=== PATIENT | male | born 1960 | race Caucasian/White ===

== ENCOUNTER 2019-03-06 07:26 | Day surgery (SDC) | payer BC ==
[2019-03-04 16:22] VITALS: BMI 42.5
[2019-03-06] MEDS ORDERED: MIDAZOLAM HCL 2 MG/2 ML SINGLE DOSE VIAL ONE ×2 (09:17→10:39)
[2019-03-06] MEDS ORDERED: ROPIVACAINE HCL 0.5% 30ML VIAL ONE (09:17)
[2019-03-06] MEDS ORDERED: ONDANSETRON 4 MG/2 ML VIAL IVPUSH PRN (09:57)
[2019-03-06] MEDS ORDERED: oxyCODONE HCL 5 MG TABLET PO PRN ×2 (09:57)
[2019-03-06] MEDS ORDERED: LACTATED RINGERS SOLUTION 1,000 ML IV SCH (10:00)
[2019-03-06] MEDS ORDERED: ceFAZolin SODIUM 1 GM VIAL ONE (10:49)
[2019-03-06 12:28] VITALS: TEMP 98
[2019-03-06 13:13] VITALS: BP 129/60; PULSE 56
--- NOTE | 2019-03-06 13:33 | OP ---
DATE OF OPERATION: 03/06/2019 Done at [facility] SURGEON: Khoa Vergara MD BOWLING FLOOR DESK CLERK: CHRISTOPHER Tinoco PREOPERATIVE DIAGNOSES: 1. Right shoulder rotator cuff tear. 2. Right shoulder adhesive capsulitis. 3. Right shoulder impingement syndrome. 4. Right shoulder acromioclavicular joint disease. 5. Right shoulder superior labral tear, anterior and posterior with synovitis. 6. Right shoulder long head biceps tendon tear. POSTOPERATIVE DIAGNOSES: 1. Right shoulder rotator cuff tear. 2. Right shoulder adhesive capsulitis. 3. Right shoulder impingement syndrome. 4. Right shoulder acromioclavicular joint disease. 5. Right shoulder superior labral tear, anterior and posterior with synovitis. 6. Right shoulder long head biceps tendon tear. PROCEDURES: 1. Right shoulder arthroscopy with arthroscopic rotator cuff repair, CPT code 37731 2. Right shoulder arthroscopy with lysis and resection of adhesions, CPT code 85532. 3. Right shoulder arthroscopy with resection of clavicle acromioclavicular joint, CPT code 05180. 4. Right shoulder arthroscopy with subacromial decompression, CPT code 09084. 5. Right shoulder arthroscopy with debridement, CPT code 66008. 6. Right shoulder biceps tenolysis. FINDINGS: 1. Full-thickness supraspinatus rotator cuff tear 6 cm, full thickness. 2. Extensive tearing of the biceps tendon greater than 80%. 3. Superior labral tear anterior, posterior type 1/4. 4. Anterior labral fraying. 5. Posterior labral fraying. 6. Partial subscapularis tear superior fibers. 7. Glenohumeral synovitis with scar tissue. 8. Type 2 acromion with lateral spurring. 9. Inferior spurs to clavicle with acromioclavicular joint disease. 10. Thickened scars subacromial space most pronounced anteriorly and laterally. REPAIR TYPE: Biceps tendon was released due to extensive tearing and was not repairable. It was released with Bovie cautery and taken back to the labral rim. The supraspinatus was removed with loose debris, and 2 mattress sutures were placed into the supraspinatus and secured to a bleeding bone bed using a Maria Elena rotator cuff anchor. PROCEDURE: Informed consent was obtained. The patient was taken to the operating room, where the upper extremity was prepped and draped in a sterile fashion. The shoulder was manipulated for a full range of motion. A posterior incision portal was made and directed to the glenohumeral joint. Under direct visualization, an anterior incision and portal was made. Extensive synovitis, as well as chondral injuries throughout the glenohumeral joint were debrided and removed. Any identified labral injuries, including the superior labral tear, anterior and posterior, and anterior labrum torn portions, were removed as well. The rotator cuff was visualized and noted to have a full-thickness tear. The edges were debrided. The posterior incision portal was redirected to the subacromial space where a lateral incision portal was made. Excessive and thickened scar tissue noted throughout the subacromial space, including bursal and scar tissue, were removed. The type 2 acromion was converted into a flattened type 1 using a bur for subacromial decompression. The distal inferior spur at the distal clavicle was also debrided with the use of an accessory portal in the acromioclavicular joint. The edges of the rotator cuff were identified. Sutures were placed into the rotator cuff and secured using anchors through the greater tuberosity. Prior to securing, a bleeding bed was made using a small bur, creating a bleeding surface of the rotator cuff insertion. The shoulder was then drained, a single suture was placed in all portals, a sterile dressing was placed and the patient was transferred to the recovery room without complication. The PA listed above was present and assisted at surgery. Their presence was absolutely medically necessary for the completion of the procedure. They helped hold the arthroscopy, pass instruments (and implants when indicated) and the procedure could not have been completed without their assistance. KHOA VERGARA M.D. [id number]
--- NOTE | 2019-03-12 14:55 | PATH ---
Surgical Pathology Report Patient Name: BLANCA BAUM Med. Rec. #: [id number] /Age/Gender: 1960 (Age: 58) / M Account: [id number] Location: [facility] Taken: 03/06/2019 Received: 03/06/2019 Reported: 03/12/2019 Physicians: Khoa Mathur M.D. Specimen(s) Received RIGHT SHOULDER SHAVINGS Clinical History Impingement syndrome right shoulder Final Diagnosis SHOULDER, RIGHT, ARTHROSCOPIC SHAVINGS: FIBROCOLLAGENOUS TISSUE, BONE AND SKELETAL MUSCLE. Electronically Signed Hyacinth Rodriguez M.D. Gross Description Received in formalin, labeled "right shoulder shavings," is a 4.5 x 4.5 x 0.5 cm. aggregate of odonnell-yellow soft tissue fragments. A electronics parts sales representative portion is submitted in one cassette. 03/09/201903/09/2019
== END 2019-03-06 13:13 | disposition home or self-care (01) ==
LOC: FASU 07:26
PROVIDERS: ATTEND Orthopaedic Surgery
PROC: 0RNJ4ZZ Release Right Shoulder Joint, Percutaneous Endoscopic Approach (ICD-10-PCS; 2019-03-06)
PROC: 0PB94ZZ Excision of Right Clavicle, Percutaneous Endoscopic Approach (ICD-10-PCS; 2019-03-06)
PROC: 0RBJ4ZZ Excision of Right Shoulder Joint, Percutaneous Endoscopic Approach (ICD-10-PCS; 2019-03-06)
PROC: 0RNJ4ZZ Release Right Shoulder Joint, Percutaneous Endoscopic Approach (ICD-10-PCS; 2019-03-06)
PROC: 0LQ14ZZ Repair Right Shoulder Tendon, Percutaneous Endoscopic Approach (ICD-10-PCS; principal; 2019-03-06 10:57)
DX: M75.121 Complete rotator cuff tear or rupture of right shoulder, not specified as traumatic (principal); M75.41 Impingement syndrome of right shoulder; M75.01 Adhesive capsulitis of right shoulder; M24.111 Other articular cartilage disorders, right shoulder; M65.811 Other synovitis and tenosynovitis, right shoulder; M66.811 Spontaneous rupture of other tendons, right shoulder; M19.011 Primary osteoarthritis, right shoulder
CPT/HCPCS: 82962; 94760

== ENCOUNTER 2019-12-04 06:06 | Day surgery (SDC) | payer BC ==
--- OUTSIDE RECORDS SUMMARY | 2019-11-30 08:57 | XMS ---
:1960 Author Organization [facility] Support Name Relationship Address Phone CE[address] [phone] [place] [id number] [address] LOVE SIGNIFICANT OTHER [address] [facility] [place] [address] Re-disclosure Warning The records that you are about to access may contain information from federally- assisted alcohol or drug abuse programs. If such information is present, then the following federally mandated warning applies: This information has been disclosed to you from records protected by federal confidentiality rules (42 CFR part 2). The federal rules prohibit you from making any further disclosure of this information unless further disclosure is expressly permitted by the written consent of the person to whom it pertains or as otherwise permitted by 42 CFR part 2. A general authorization for the release of medical or other information is NOT sufficient for this purpose. The Federal rules restrict any use of the information to criminally investigate or prosecute any alcohol or drug abuse patient.The records that you are about to access may contain highly sensitive health information, the redisclosure of which is protected by Article 27-F of the [facility] Public Health law. If you continue you may haveaccess to information: Regarding HIV / AIDS; Provided by facilities licensed or operated by the [facility] Office of Mental Health; or Provided by the [facility] Office for People With Developmental Disabilities. If such information is present, then the following [facility] mandated warning applies: This information has been disclosed to you from confidential records which are protected by state law. State law prohibits you from making any further disclosure of this information without the specific written consent of the person to whom it pertains, or as otherwise permitted by law. Any unauthorized further disclosure in violation of state law may result in a fine or retirement sentence or both. A general authorization for the release of medical or other information is NOT sufficient authorization for further disclosure. Insurance Providers Payer name Policy type / Policy ID Covered Covered green party's Policy Plan Coverage type green party ID relationship to Antoine Information antoine BC OUT OF [id number] [id number]
[2019-11-30 15:55] VITALS: BMI 47.5
--- OUTSIDE RECORDS SUMMARY | 2019-12-04 06:10 | XMS ---
:1960 Author Organization [facility] Support Name Relationship Address Phone CE[address] [phone] [place] [id number] [address] LOVE SIGNIFICANT OTHER [address] [facility] [place] [address] Re-disclosure Warning The records that you are [...] is protected by Article 27-F of the [facility] Public Health law. If you continue you may haveaccess to information: Regarding HIV / AIDS; Provided by facilities licensed or operated by the [facility] Office of Mental Health; or Provided by the [facility] Office for People With Developmental Disabilities. If such information is present, then the following [facility] mandated warning applies: This information has been [...] law may result in a fine or chcf sentence or both. A general authorization for the release of medical or other information is NOT sufficient authorization for further disclosure. Insurance Providers Payer name Policy type / Policy ID Covered Covered alliance party's Policy Plan Coverage type alliance party ID relationship to Antoine Information antoine BC OUT OF [id number] SP [id number] [id number] Results ID Date Data Source [id number] 11/30/2019 02:04:00 PM EDT [facility] Name Value Range Interpretation Description Data Sup porting Code Source(s) Document(s ) SARS [facility] coronavirus 2 RNA This lab was ordered by [facility] and reported by [facility]. Procedure
[2019-12-04] MEDS ORDERED: ROPIVACAINE HCL 0.5% 30ML VIAL ONE (06:51)
[2019-12-04] MEDS ORDERED: MIDAZOLAM HCL 2 MG/2 ML SINGLE DOSE VIAL ONE ×4 (06:51→08:08)
[2019-12-04] MEDS ORDERED: PROPOFOL 20 ML ONE ×2 (06:58)
[2019-12-04] MEDS ORDERED: EPHEDRINE SULFATE/0.9% NACL/PF 50 MG/10 ML SYRINGE NR ONE (06:59)
[2019-12-04] MEDS ORDERED: SUCCINYLCHOLINE CHLORIDE 200 MG/10 ML SYRINGE ONE (06:59)
[2019-12-04] MEDS ORDERED: BUPIVACAINE HCL/PF 0.5% (5MG/ML) 10 ML VIAL ONE (07:37)
[2019-12-04] MEDS ORDERED: BUPIVACAINE HCL/PF 0.25% (2.5MG/ML) 10 ML VIAL ONE (07:37)
[2019-12-04] MEDS ORDERED: ceFAZolin SODIUM 1 GM VIAL ONE (07:38)
[2019-12-04] MEDS ORDERED: ACETAMINOPHEN INJECTION 100 ML IVPB ONE (07:41)
[2019-12-04] MEDS ORDERED: ceFAZolin SODIUM 1 GM VIAL IVPB ONE (07:50)
[2019-12-04] MEDS ORDERED: oxyCODONE HCL 5 MG TABLET PO PRN ×2 (08:33)
[2019-12-04] MEDS ORDERED: ONDANSETRON 4 MG/2 ML VIAL IVPUSH PRN (08:33)
[2019-12-04] MEDS ORDERED: BUPIVACAINE HCL/PF 0.25% (2.5MG/ML) 10 ML VIAL IJ ONE (08:40)
[2019-12-04] MEDS ORDERED: LACTATED RINGERS SOLUTION 1,000 ML IV SCH (08:45)
[2019-12-04 09:25] VITALS: TEMP 98.7
[2019-12-04 10:26] VITALS: BP 120/72; PULSE 58
--- NOTE | 2019-12-06 14:02 | SPEC ---
DATE OF OPERATION: 12/04/2019 LOCATION: [facility]. SURGEON: Lorenzo Vergara MD STOCK TRADER: CHRISTOPHER Tinoco PREOPERATIVE DIAGNOSES: 1. Right shoulder adhesive capsulitis. 2. Right shoulder impingement syndrome. 3. Right shoulder acromioclavicular joint disease. 4. Right shoulder superior labral tear, anterior/posterior synovitis. POSTOPERATIVE DIAGNOSES: 1. Right shoulder adhesive capsulitis. 2. Right shoulder impingement syndrome. 3. Right shoulder acromioclavicular joint disease. 4. Right shoulder superior labral tear, anterior/posterior synovitis. PROCEDURE: 1. Right shoulder arthroscopy with lysis of adhesions. CPT code 65474. 2. Right shoulder arthroscopy with subacromial decompression. CPT code 86787. 3. Right shoulder arthroscopy with resection of distal clavicle and acromioclavicular joint. CPT code 28850. 4. Right shoulder arthroscopy with debridement. CPT code 28887. FINDINGS: 1. Evidence of previous arthroscopy with rotator cuff repair and biceps tenodesis. 2. No evidence of recurrent tear. 3. Extensive scar tissue, subacromial space anterior and laterally. 4. Extensive adhesions, glenohumeral joint anteriorly. 5. Minor fraying, medial and posterior labrum. 6. Previous subacromial decompression with recurrent anterior spur. 7. Inferior spur of distal clavicle with previous partial resection. DESCRIPTION OF PROCEDURE: Informed consent was obtained. The patient was taken to the operating room, where the upper extremity was prepped and draped in a sterile fashion. A scalene block was performed by Anesthesia. Manipulation under anesthesia was allowed for full range of motion. Using standard arthroscopic technique, a posterior incision portal was made, which allowed for introduction of a camera into the glenohumeral joint. Under direct visualization, an anterior incision and portal was made. Extensive and thickened synovitis was debrided. Fraying of the labrum was debrided and the superior labrum from anterior to posterior was identified with all loose areas debrided. Any labral tears were taken to a stable rim including identified SLAP lesions. All loose cartilage was debrided. The rotator cuff was identified and evaluated, as were the subacromial and bursal surfaces. The posterior incision portal was redirected to the subacromial space, where a lateral incision and portal was made. Excessive and thickened synovium was removed throughout the subacromial space including the anterior scar tissue, posterior bursa and lateral bursa. The type 2 acromion was converted to a flattened type 1, removing the anterior and lateral spurring. An accessory portal was made at the acromioclavicular joint, removing the inferior spur of the distal clavicle at the acromioclavicular joint allowing for a distal clavicle partial resection. Please note that 1 cm of undersurface of clavicle was removed extending into the intra articular portion and through an accessory portal. The shoulder was once again reexamined and all impingement was removed. The shoulder was drained. A single suture was placed in all portals and a sterile dressing was placed. The patient was transferred to the recovery room without complication. The PA listed above was present and assisted at surgery. Their presence was absolutely medically necessary for the completion of the procedure. They helped hold the arthroscopy, pass instruments (and implants when indicated) and the procedure could not have been completed without their assistance. ADDENDUM: Patient's previous biceps tendon tenodesis had soft tissue healing in the area, and there was no evidence of recurrent rotator cuff tear. Some thinning of the anterior portion was noted, but not to be full thickness; it was less than 50%. Patient had extensive and severe scar tissue anterior and laterally which required extensive debridement and release both with Bovie cautery and aggressive shaver. Recurrent bone spurs were removed as well. LORENZO VERGARA M.D. [id number]
== END 2019-12-04 10:31 | disposition home or self-care (01) ==
LOC: FASU 06:06
PROVIDERS: ATTEND Orthopaedic Surgery
PROC: 0RBJ4ZZ Excision of Right Shoulder Joint, Percutaneous Endoscopic Approach (ICD-10-PCS; 2019-12-04)
PROC: 0PB94ZZ Excision of Right Clavicle, Percutaneous Endoscopic Approach (ICD-10-PCS; principal; 2019-12-04 07:30)
DX: M75.01 Adhesive capsulitis of right shoulder (principal); M75.41 Impingement syndrome of right shoulder; M19.011 Primary osteoarthritis, right shoulder; M24.111 Other articular cartilage disorders, right shoulder; M65.811 Other synovitis and tenosynovitis, right shoulder
CPT/HCPCS: 82962; 94760; J0131

== ENCOUNTER 2022-06-08 08:12 | Day surgery (SDC) | payer BC ==
[2022-06-08] MEDS ORDERED: PROPOFOL 20 ML ONE (08:46)
[2022-06-08] MEDS ORDERED: LIDOCAINE HCL/PF 2% SDV 5ML VIAL ONE (08:46)
[2022-06-08] MEDS ORDERED: MIDAZOLAM HCL 2 MG/2 ML SINGLE DOSE VIAL ONE (08:47)
[2022-06-08 08:50] VITALS: BMI 41.5
[2022-06-08] MEDS ORDERED: BUPIVACAINE HCL/PF 2.5 MG/ML - 30 ML VIAL IJ ONE (09:36)
[2022-06-08] MEDS ORDERED: ceFAZolin SODIUM 1 GM VIAL ONE (09:57)
[2022-06-08] MEDS ORDERED: DEXAMETHASONE SOD PHOSPHATE 4 MG/1 ML VIAL ONE (09:58)
[2022-06-08] MEDS ORDERED: KETOROLAC TROMETHAMINE 30 MG/1 ML VIAL ONE (09:59)
[2022-06-08] MEDS ORDERED: ONDANSETRON 4 MG/2 ML VIAL ONE (09:59)
[2022-06-08] MEDS ORDERED: BUPIVACAINE HCL/PF 0.25% (2.5MG/ML) 10 ML VIAL IJ ONE (10:52)
[2022-06-08] MEDS ORDERED: ACETAMINOPHEN 1000 MG/100 ML BAG IVPB ONE (11:03)
[2022-06-08] MEDS ORDERED: PROMETHAZINE HCL 25 MG/1 ML VIAL IVPB PRN (11:03)
[2022-06-08] MEDS ORDERED: oxyCODONE HCL 5 MG TABLET PO PRN ×2 (11:03)
[2022-06-08] MEDS ORDERED: ONDANSETRON 4 MG/2 ML VIAL IVPUSH PRN (11:03)
[2022-06-08] MEDS ORDERED: LACTATED RINGERS SOLUTION 1,000 ML IV SCH (11:15)
[2022-06-08] MEDS ORDERED: ACETAMINOPHEN INJECTION 100 ML IVPB ONE (11:22)
[2022-06-08 11:49] VITALS: PULSE 64; TEMP 97.8
[2022-06-08 12:02] VITALS: BP 100/68; RESP 18
== END 2022-06-08 12:14 | disposition home or self-care (01) ==
LOC: FASU 08:12
PROVIDERS: ATTEND Orthopaedic Surgery
PROC: 0SCC4ZZ Extirpation of Matter from Right Knee Joint, Percutaneous Endoscopic Approach (ICD-10-PCS; 2022-06-08)
PROC: 0SBC4ZZ Excision of Right Knee Joint, Percutaneous Endoscopic Approach (ICD-10-PCS; principal; 2022-06-08 10:05)
DX: M65.861 Other synovitis and tenosynovitis, right lower leg (principal); M23.41 Loose body in knee, right knee; Z96.651 Presence of right artificial knee joint
CPT/HCPCS: 82962; 87070; 87205; 94760

== ENCOUNTER 2022-07-06 06:50 | Day surgery (SDC) | payer BC ==
[2022-07-03 11:59] VITALS: BMI 40.4
[2022-07-06] MEDS ORDERED: DEXAMETHASONE SOD PHOSPHATE 4 MG/1 ML VIAL ONE (08:39)
[2022-07-06] MEDS ORDERED: ONDANSETRON 4 MG/2 ML VIAL ONE (08:39)
[2022-07-06] MEDS ORDERED: LIDOCAINE HCL/PF 2% SDV 5ML VIAL ONE (08:39)
[2022-07-06] MEDS ORDERED: PROPOFOL 20 ML ONE (08:39)
[2022-07-06] MEDS ORDERED: KETOROLAC TROMETHAMINE 30 MG/1 ML VIAL ONE (08:39)
[2022-07-06] MEDS ORDERED: MIDAZOLAM HCL 2 MG/2 ML SINGLE DOSE VIAL ONE (08:39)
[2022-07-06] MEDS ORDERED: ceFAZolin SODIUM 1 GM VIAL ONE ×2 (08:39→09:52)
[2022-07-06] MEDS ORDERED: BUPIVACAINE HCL/PF 2.5 MG/ML - 30 ML VIAL IJ ONE (09:18)
[2022-07-06] MEDS ORDERED: EPINEPHrine 1:1,000 1,000 MCG/ML ML ONE (10:18)
[2022-07-06] MEDS ORDERED: oxyCODONE HCL 5 MG TABLET PO PRN (10:46)
[2022-07-06] MEDS ORDERED: ONDANSETRON 4 MG/2 ML VIAL IVPUSH PRN (10:46)
[2022-07-06] MEDS ORDERED: ACETAMINOPHEN 1000 MG/100 ML BAG IVPB ONE (10:47)
[2022-07-06] MEDS ORDERED: LACTATED RINGERS SOLUTION 1,000 ML IV SCH (11:00)
[2022-07-06 12:24] VITALS: RESP 18; TEMP 98
[2022-07-06 12:25] VITALS: BP 112/77; PULSE 61
== END 2022-07-06 12:15 | disposition home or self-care (01) ==
LOC: FASU 06:50
PROVIDERS: ATTEND Orthopaedic Surgery
PROC: 0SBD4ZZ Excision of Left Knee Joint, Percutaneous Endoscopic Approach (ICD-10-PCS; principal; 2022-07-06 10:03)
DX: T84.82XA Fibrosis due to internal orthopedic prosthetic devices, implants and grafts, initial encounter (principal); Y79.3 Surgical instruments, materials and orthopedic devices (including sutures) associated with adverse incidents; Y92.9 Unspecified place or not applicable; Z96.652 Presence of left artificial knee joint
CPT/HCPCS: 82962; 94760

== ENCOUNTER 2023-02-28 06:04 | Day surgery (SDC) | payer BC ==
[2023-02-18 17:12] VITALS: BMI 36.7
[2023-02-28] MEDS ORDERED: ONDANSETRON 4 MG/2 ML VIAL IVPUSH PRN (07:00)
[2023-02-28] MEDS ORDERED: ACETAMINOPHEN 325 MG TABLET (FP) PO PRN (07:00)
[2023-02-28] MEDS ORDERED: LACTATED RINGERS SOLUTION 1,000 ML IV SCH (07:00)
[2023-02-28] MEDS ORDERED: oxyCODONE HCL 5 MG TABLET PO PRN (07:00)
[2023-02-28] MEDS ORDERED: MIDAZOLAM HCL 2 MG/2 ML SINGLE DOSE VIAL ONE (07:05)
[2023-02-28] MEDS ORDERED: BUPIVACAINE HCL/PF 0.5% (5MG/ML) 10 ML VIAL ONE (07:06)
[2023-02-28] MEDS ORDERED: DEXAMETHASONE SOD PHOSPHATE/PF 10 MG/ML SDV ONE (07:06)
[2023-02-28] MEDS ORDERED: ACETAMINOPHEN INJECTION 100 ML IVPB ONE (07:06)
[2023-02-28] MEDS ORDERED: PROPOFOL 20 ML ONE ×2 (08:08→08:35)
[2023-02-28] MEDS ORDERED: ONDANSETRON 4 MG/2 ML VIAL ONE (08:35)
[2023-02-28 10:58] VITALS: BP 109/57; PULSE 63; RESP 18; TEMP 97.7
== END 2023-02-28 10:45 | disposition home or self-care (01) ==
LOC: FASU 06:04
PROVIDERS: ATTEND Orthopaedic Surgery
PROC: 0LS44ZZ Reposition Left Upper Arm Tendon, Percutaneous Endoscopic Approach (ICD-10-PCS; 2023-02-28)
PROC: 0RBK4ZZ Excision of Left Shoulder Joint, Percutaneous Endoscopic Approach (ICD-10-PCS; 2023-02-28)
PROC: 0PBB4ZZ Excision of Left Clavicle, Percutaneous Endoscopic Approach (ICD-10-PCS; principal; 2023-02-28 08:31)
DX: M75.102 Unspecified rotator cuff tear or rupture of left shoulder, not specified as traumatic (principal); S46.112A Strain of muscle, fascia and tendon of long head of biceps, left arm, initial encounter; M75.02 Adhesive capsulitis of left shoulder; M75.42 Impingement syndrome of left shoulder; S43.432A Superior glenoid labrum lesion of left shoulder, initial encounter; X58.XXXA Exposure to other specified factors, initial encounter; Y93.9 Activity, unspecified; Y92.9 Unspecified place or not applicable; M19.012 Primary osteoarthritis, left shoulder
CPT/HCPCS: 82962; 94760; C1713